=== PATIENT | female | born 1965 | race Caucasian/White ===

== ENCOUNTER 2017-07-15 22:26 | Observation (INO) | payer OTHER ==
[2017-07-15] MEDS ORDERED: ASPIRIN 81 MG CHEWABLE TABLETS PO ONE (23:26)
--- NOTE | 2017-07-15 23:26 | PDOC ---
History of Present Illness - General History Source: Patient Exam Limitations: No Limitations <Kadeem Hall - Last Filed: 07/15/17 23:27> <Delfina Callaway - Last Filed: 07/17/17 01:44> - General Chief Complaint: Chest Pain Stated Complaint: CHEST PAIN Time Seen by Provider: 07/15/17 23:06 - History of Present Illness Initial Comments: 07/15/17 23:27 The patient is a 51 year old female with a significant past medical history of borderline diabetes, HTN, and HLD who presents to the ED with complaints of chest pain since earlier today. The patient reports a sharp onset of mid chest pain radiating to her neck with shortness of breath and palpitations while she was sitting down around 9:45 pm tonight. Patient states the chest pain lasted half an hour before subsiding. Upon arrival to the ED, patient states her chest pain is a 0/10. Patient reports a similar episode last week while she was driving in the car and noted her chest pain lasted 10 minutes before subsiding. Patient states she was recently taken off her hypertension medication by her PCP secondary to it being under control. Denies nausea, vomiting, or diarrhea. Denies arm pain. Denies fevers or chills. Denies dysuria or changes in urinary output. Denies any other symptoms. Surgical hx: Tummy Tuck Social hx: No smoking, ETOH or recreational drug use. (Kadeem Hall) Past History <Kadeem Hall - Last Filed: 07/15/17 23:27> - Past Medical History HTN: Yes Hypercholesterolemia: Yes - Psycho/Social/Smoking Cessation Hx Suicidal Ideation: No Smoking History: Never smoked <Delfina Callaway - Last Filed: 07/17/17 01:44> - Past Medical History Allergies/Adverse Reactions: Allergies Allergy/AdvReac Type Severity Reaction Status Date / Time Penicillins Allergy Verified 07/15/17 22:30 Home Medications: Ambulatory Orders Atorvastatin Ca [Lipitor] 20 mg PO HS 07/15/17 Methylprednisolone [Medrol -] 4 mg PO DAILY 07/15/17 Review of Systems - Review of Systems Able to Perform ROS?: Yes All Other Systems: Reviewed and Negative <Kadeem Hall - Last Filed: 07/15/17 23:27> <Delfina Callaway - Last Filed: 07/17/17 01:44> - Review of Systems Comments:: 07/15/17 23:28 CONSTITUTIONAL: No reported: Fever, Chills, Diaphoresis, Generalized Weakness, Malaise, Loss of Appetite HEENT: No reported: Rhinorrhea, Nasal Congestion, Throat Pain, Throat Swelling, Difficulty Swallowing, Mouth Swelling, Ear Pain, Eye Pain, Visual Changes CARDIOVASCULAR: + chest pain, SOB, palpitations No reported: , Syncope, Irregular Heart Rate, Lightheadedness, Peripheral Edema RESPIRATORY: No reported: Cough, Orthopnea, Wheezing, Stridor, Hemoptysis GASTROINTESTINAL: No reported: Abdominal pain, Abdominal Distension, Nausea, Vomiting, Diarrhea, Constipation, Melena, Hematochezia GENITOURINARY: No reported: Dysuria, Frequency, Urgency, Hesitancy, Flank Pain, Genital Pain MUSCULOSKELETAL: No reported: Myalgia, Arthralgia, Joint Swelling, Back pain, Neck Pain SKIN: No reported: Rash, Itching, Pallor HEMEATOLOGIC/IMMUNOLOGIC: No reported: Easy Bleeding, Easy Bruising, Lymphadenopathy, Frequent infections ENDOCRINE: No reported: Unexplained Weight Gain, Unexplained Weight Loss, Heat Intolerance , Cold Intolerance NEUROLOGIC: No reported: Headache, Focal Weakness, Paresthesias, Vertigo, Lightheadedness, Unsteady Gait, Seizure, Mental Status Changes, Incontinence PSYCHIATRIC: No reported: Anxiety, Depression (Kadeem Hall) *Physical Exam <Kadeem Hall - Last Filed: 07/15/17 23:27> <NiltonThaddeusdavid Garenr - Last Filed: 07/17/17 01:44> - Vital Signs Last Vital Signs Temp Pulse Resp BP Pulse Ox 97.8 F 63 20 134/94 98 07/16/17 17:00 07/16/17 17:00 07/16/17 17:00 07/16/17 17:00 07/16/17 20:03 - Physical Exam Comments: 07/15/17 23:28 GENERAL: Well developed, well nourished. Awake and alert. No acute distress. HEENT: Normocephalic, atraumatic. PERRLA, EOMI. No conjunctival pallor. Sclera are non- icteric. Moist mucous membranes. Oropharynx is clear. NECK: Supple. Full ROM. No JVD. Carotid pulses 2+ and symmetric, without bruits. No thyromegaly. No lymphadenopathy. CARDIOVASCULAR: Regular rate and rhythm. No murmurs, rubs, or gallops. Distal pulses are 2+ and symmetric. PULMONARY: No evidence of respiratory distress. Lungs clear to auscultation bilaterally. No wheezing, rales or rhonchi. ABDOMINAL: Soft. Non-tender. Non-distended. No rebound or guarding. No organomegaly. Normoactive bowel sounds. MUSCULOSKELETAL Normal range of motion at all joints. No bony deformities or tenderness. No CVA tenderness. EXTREMITIES: No cyanosis. No clubbing. No edema. No calf tenderness. SKIN: Warm and dry. Normal capillary refill. No rashes. No jaundice. NEUROLOGICAL: Alert, awake, appropriate. Cranial nerves 2-12 intact. No deficits to light touch and temperature in face, upper extremities and lower extremities. No motor deficits in the in face, upper extremities and lower extremities. Normoreflexic in the upper and lower extremities. Normal speech. Toes are down- going bilaterally. Gait is normal without ataxia. PSYCHIATRIC: Cooperative. Good eye contact. Appropriate mood and affect. (Kadeem Hall) ED Treatment Course - LABORATORY CBC & Chemistry Diagram: 07/15/17 23:35 07/15/17 23:35 <Delfina Callaway - Last Filed: 07/17/17 01:44> - ADDITIONAL ORDERS Additional order review: 07/15/17 23:35 RBC 5.08 MCV 92.4 MCHC 33.1 RDW 14.3 MPV 9.3 Neutrophils % 85.5 H Lymphocytes % 8.8 Monocytes % 5.3 Eosinophils % 0.0 Basophils % 0.4 - RADIOLOGY Radiology Studies Ordered: Category Date Time Status CHEST X-RAY PORTABLE* [RAD] Stat Radiology 07/16/17 00:40 Completed - Medications Given in the ED: ED Medications Discontinued Medications Generic Name Dose Route Start Last Admin Trade Name Freq PRN Reason Stop Dose Admin Acetaminophen 1,000 mg 07/16/17 08:51 07/16/17 09:40 Ofirmev Injection - IVPB 07/16/17 08:52 1,000 mg ONCE ONE Administration Al Hydroxide/Mg Hydroxide 30 ml 07/16/17 09:31 07/16/17 09:40 Mylanta Oral Suspension - PO 07/16/17 09:32 30 ml ONCE ONE Administration Aspirin 162 mg 07/15/17 23:26 07/15/17 23:52 Asa - PO 07/15/17 23:27 162 mg ONCE ONE Administration Sodium Chloride 1,000 mls @ 1,000 mls/hr 07/16/17 07:37 07/16/17 09:05 Normal Saline - IV 07/16/17 08:36 1,000 mls/hr ASDIR STA Administration Famotidine/Sodium Chloride 50 mls @ 100 mls/hr 07/16/17 09:31 07/16/17 09:40 Pepcid 20 Mg Premixed Ivpb - IVPB 07/16/17 10:00 100 mls/hr ONCE ONE Administration Medical Decision Making <Kadeem Hall - Last Filed: 07/15/17 23:27> <Delfina Callaway - Last Filed: 07/17/17 01:44> - Medical Decision Making 07/16/17 01:52 51 yo female presents with family after having a 30 minute episode of palpitations and midsternal chest pain. Upon arrival her chest pain was gone -She has had a previous episode within the past 10 days Past medical history hyperlipidemia, she had been on medications for hypertension, but her primary care physician stopped her hypertension medicine -She states that she has borderline diabetes 07/16/17 02: ekg normal sinus rhythm at 98 bpm Patient's cardiac enzymes are negative, chemistries are unremarkable Chest x-ray slightly rotated , but there is no significant cardiomegaly Plan patient have a repeat cardiac enzyme (Delfina Callaway) *DC/Admit/Observation/Transfer <Kadeem Hall - Last Filed: 07/15/17 23:27> <Delfina Callaway - Last Filed: 07/17/17 01:44> Diagnosis at time of Disposition: Chest pain - Discharge Dispostion Condition at time of disposition: Stable - Attestations Scribe Attestion: 07/15/17 23:28 Documentation prepared by Kadeem Hall, acting as medical staff services coordinator for Delfina Callaway MD (Kadeem Hall)
[2017-07-15] MEDS ORDERED: ASPIRIN 81 MG CHEWABLE TABLETS ONE (23:37)
[2017-07-15 23:49] LABS: BASOPHIL 0.4 % (0-2.0); MCH 30.6 pg (25.7-33.7); MCHC 33.1 g/dl (32.0-36.0); MEAN CELL VOLUME 92.4 fl (80-96); MEAN PLT VOLUME 9.3 fl (7.5-11.1); NEUTROPHILS 85.5 % (42.8-82.8); PLATELET COUNT 227 K/MM3 (134-434); RDW 14.3 % (11.6-15.6); WHITE BLOOD COUNT 12.8 K/mm3 (4.0-10.0)
[2017-07-16 00:11] LABS: INR 1.01 (0.82-1.09); PROTHROMBIN TIME (PATIENT) 11.1 SEC (9.98-11.88)
[2017-07-16 00:27] LABS: ALBUMIN 4.1 g/dl (3.4-5.0); ANION GAP 10 (8-16); CALCIUM 9.1 mg/dL (8.5-10.1); CHOLESTEROL 237 mg/dL (50-200); CO2 25 mmol/L (21-32); GLUCOSE,RANDOM 236 mg/dL (74-106); SGPT/ALT 32 U/L (12-78)
[2017-07-16 00:29] LABS: ALK PHOS 103 U/L (45-117); BILIRUBIN,TOTAL 0.5 mg/dL (0.2-1.0); CPK 90 IU/L (26-192); MAGNESIUM 2.3 mg/dL (1.8-2.4); SGOT/AST 23 U/L (15-37); TOT PROT 7.9 g/dl (6.4-8.2); TROPONIN I < 0.02 ng/ml (0.00-0.05)
[2017-07-16 02:47] LABS: LDL CHOLESTEROL (ONLY SJRH) 138 mg/dL (5-100)
[2017-07-16 03:13] LABS: URINE APPEARANCE CLEAR; URINE BILIRUBIN NEGATIVE (NEGATIVE); URINE BLOOD NEGATIVE (NEGATIVE); URINE COLOR LTYELLOW; URINE GLUCOSE (UA) NEGATIVE (NEGATIVE); URINE KETONE NEGATIVE (NEGATIVE); URINE LEUK ESTERASE NEGATIVE (NEGATIVE); URINE NITRITE NEGATIVE (NEGATIVE); URINE PROTEIN NEGATIVE (NEGATIVE); URINE UROBILINOGEN NEGATIVE mg/dL (0.2-1.0)
[2017-07-16 07:16] LABS: CPK 69 IU/L (26-192); TROPONIN I < 0.02 ng/ml (0.00-0.05)
[2017-07-16] MEDS ORDERED: SODIUM CHLORIDE 1,000 ML IV STA (07:37)
--- NOTE | 2017-07-16 07:39 | PDOC ---
*Physical Exam - Vital Signs Last Vital Signs Temp Pulse Resp BP Pulse Ox 97.7 F 91 H 20 135/79 98 07/16/17 06:46 07/16/17 06:46 07/16/17 06:46 07/16/17 06:46 07/16/17 06:46 Heart Score/ECG Review - History History: Slightly suspicious - Electrocardiogram EKG: Non specific repolarization disturbance - Age Age: 45-65 - Risk Factors Risk Factors Heart Score: Yes Hx Hypercholesterolemia, Yes Hx Hypertension, Yes Hx Diabetes, Yes Hx Obesity Based on the list above the patient has:: >/=3 risk factors or Hx atherosclerotic disease - Troponin Troponin: </= normal limit - Score Heart Score - Total: 4 ED Treatment Course - LABORATORY CBC & Chemistry Diagram: 07/15/17 23:35 07/15/17 23:35 - ADDITIONAL ORDERS Additional order review: Laboratory Results 07/16/17 07/16/17 07/15/17 06:34 03:00 23:35 INR Sodium Potassium Chloride Carbon Dioxide Anion Gap BUN Creatinine Creat Clearance w eGFR Random Glucose Calcium Magnesium Total Bilirubin AST ALT Alkaline Phosphatase Creatine Kinase 69 Troponin I < 0.02 B-Natriuretic Peptide Total Protein Albumin Triglycerides Cholesterol Total LDL Cholesterol HDL Cholesterol Serum , Qual Negative Urine Color Ltyellow Urine Appearance Clear Urine pH 5.0 Urine Protein Negative Urine Glucose (UA) Negative Urine Ketones Negative Urine Blood Negative Urine Nitrite Negative Urine Bilirubin Negative Urine Urobilinogen Negative Ur Leukocyte Esterase Negative 07/15/17 07/15/17 23:35 23:35 INR 1.01 Sodium 137 Potassium 4.7 Chloride 102 Carbon Dioxide 25 Anion Gap 10 BUN 24 H Creatinine 1.0 Creat Clearance w eGFR 58.00 Random Glucose 236 H Calcium 9.1 Magnesium 2.3 Total Bilirubin 0.5 AST 23 ALT 32 Alkaline Phosphatase 103 Creatine Kinase 90 Troponin I < 0.02 B-Natriuretic Peptide 51.97 Total Protein 7.9 Albumin 4.1 Triglycerides 202 H Cholesterol 237 H Total LDL Cholesterol 138 H HDL Cholesterol 63 H Serum , Qual Urine Color Urine Appearance Urine pH Urine Protein Urine Glucose (UA) Urine Ketones Urine Blood Urine Nitrite Urine Bilirubin Urine Urobilinogen Ur Leukocyte Esterase 07/15/17 23:35 RBC 5.08 MCV 92.4 MCHC 33.1 RDW 14.3 MPV 9.3 Neutrophils % 85.5 H Lymphocytes % 8.8 Monocytes % 5.3 Eosinophils % 0.0 Basophils % 0.4 - Medications Given in the ED: ED Medications Discontinued Medications Generic Name Dose Route Start Last Admin Trade Name Freq PRN Reason Stop Dose Admin Aspirin 162 mg 07/15/17 23:26 07/15/17 23:52 Asa - PO 07/15/17 23:27 162 mg ONCE ONE Administration Medical Decision Making - Medical Decision Making 07/16/17 10:24 51 F with HTN, HLD presenting with chest pain. EKG nonischemic, Trops negative x2. However, pt reassessed in AM and is still having active chest pain. - Ddimer ordered - Pt to be admitted for obs - Dr. Jung has accepted pt. - Cards consult pending. *DC/Admit/Observation/Transfer Diagnosis at time of Disposition: Chest pain - Discharge Dispostion Condition at time of disposition: Stable
[2017-07-16] MEDS ORDERED: ACETAMINOPHEN 1000 MG/100 ML VIAL (NON FORMULARY) IVPB ONE (08:51)
[2017-07-16] MEDS ORDERED: FAMOTIDINE 20 MG/50 ML IVPB 50 ML IVPB ONE ×2 (09:31→09:34)
[2017-07-16] MEDS ORDERED: MAG HYDROX/AL HYDROX/SIMETH 30 ML UNIT-DOSE CUP PO ONE (09:31)
[2017-07-16] MEDS ORDERED: MAG HYDROX/AL HYDROX/SIMETH 30 ML UNIT-DOSE CUP ONE (09:34)
[2017-07-16] MEDS ORDERED: ACETAMINOPHEN INJECTION 100 ML IVPB ONE (09:34)
[2017-07-16 14:02] VITALS: BMI 34.7
--- NOTE | 2017-07-16 15:52 | PDOC ---
*Physical Exam - Vital Signs Last Vital Signs Temp Pulse Resp BP Pulse Ox 97.9 F 67 18 118/52 98 07/16/17 15:40 07/16/17 15:40 07/16/17 15:40 07/16/17 15:40 07/16/17 15:40 <Ben Diaz - Last Filed: 07/16/17 15:52> - Vital Signs Last Vital Signs Temp Pulse Resp BP Pulse Ox 97.9 F 67 18 118/52 98 07/16/17 15:40 07/16/17 15:40 07/16/17 15:40 07/16/17 15:40 07/16/17 15:40 <Chloe Saleh - Last Filed: 07/16/17 16:27> ED Treatment Course - LABORATORY CBC & Chemistry Diagram: 07/15/17 23:35 07/15/17 23:35 - ADDITIONAL ORDERS Additional order review: Laboratory Results 07/16/17 07/16/17 07/16/17 09:40 06:34 03:00 D-Dimer < 200 Creatine Kinase 69 Troponin I < 0.02 Urine Color Ltyellow Urine Appearance Clear Urine pH 5.0 Ur Specific [place] 1.020 Urine Protein Negative Urine Glucose (UA) Negative Urine Ketones Negative Urine Blood Negative Urine Nitrite Negative Urine Bilirubin Negative Urine Urobilinogen Negative Ur Leukocyte Esterase Negative 07/15/17 23:35 RBC 5.08 MCV 92.4 MCHC 33.1 RDW 14.3 MPV 9.3 Neutrophils % 85.5 H Lymphocytes % 8.8 Monocytes % 5.3 Eosinophils % 0.0 Basophils % 0.4 - Medications Given in the ED: ED Medications Discontinued Medications Generic Name Dose Route Start Last Admin Trade Name Donna PRN Reason Stop Dose Admin Acetaminophen 1,000 mg 07/16/17 08:51 07/16/17 09:40 Ofirmev Injection - IVPB 07/16/17 08:52 1,000 mg ONCE ONE Administration Al Hydroxide/Mg Hydroxide 30 ml 07/16/17 09:31 07/16/17 09:40 Mylanta Oral Suspension - PO 07/16/17 09:32 30 ml ONCE ONE Administration Aspirin 162 mg 07/15/17 23:26 07/15/17 23:52 Asa - PO 07/15/17 23:27 162 mg ONCE ONE Administration Sodium Chloride 1,000 mls @ 1,000 mls/hr 07/16/17 07:37 07/16/17 09:05 Normal Saline - IV 07/16/17 08:36 1,000 mls/hr ASDIR STA Administration Famotidine/Sodium Chloride 50 mls @ 100 mls/hr 07/16/17 09:31 07/16/17 09:40 Pepcid 20 Mg Premixed Ivpb - IVPB 07/16/17 10:00 100 mls/hr ONCE ONE Administration <Ou,Ben - Last Filed: 07/16/17 15:52> - LABORATORY CBC & Chemistry Diagram: 07/15/17 23:35 07/15/17 23:35 - ADDITIONAL ORDERS Additional order review: Laboratory Results 07/16/17 07/16/17 07/16/17 09:40 06:34 03:00 D-Dimer < 200 Creatine Kinase 69 Troponin I < 0.02 Urine Color Ltyellow Urine Appearance Clear Urine pH 5.0 Ur Specific [place] 1.020 Urine Protein Negative Urine Glucose (UA) Negative Urine Ketones Negative Urine Blood Negative Urine Nitrite Negative Urine Bilirubin Negative Urine Urobilinogen Negative Ur Leukocyte Esterase Negative 07/15/17 23:35 RBC 5.08 MCV 92.4 MCHC 33.1 RDW 14.3 MPV 9.3 Neutrophils % 85.5 H Lymphocytes % 8.8 Monocytes % 5.3 Eosinophils % 0.0 Basophils % 0.4 - Medications Given in the ED: ED Medications Discontinued Medications Generic Name Dose Route Start Last Admin Trade Name Donna PRN Reason Stop Dose Admin Acetaminophen 1,000 mg 07/16/17 08:51 07/16/17 09:40 Ofirmev Injection - IVPB 07/16/17 08:52 1,000 mg ONCE ONE Administration Al Hydroxide/Mg Hydroxide 30 ml 07/16/17 09:31 07/16/17 09:40 Mylanta Oral Suspension - PO 07/16/17 09:32 30 ml ONCE ONE Administration Aspirin 162 mg 07/15/17 23:26 07/15/17 23:52 Asa - PO 07/15/17 23:27 162 mg ONCE ONE Administration Sodium Chloride 1,000 mls @ 1,000 mls/hr 07/16/17 07:37 07/16/17 09:05 Normal Saline - IV 07/16/17 08:36 1,000 mls/hr ASDIR STA Administration Famotidine/Sodium Chloride 50 mls @ 100 mls/hr 07/16/17 09:31 07/16/17 09:40 Pepcid 20 Mg Premixed Ivpb - IVPB 07/16/17 10:00 100 mls/hr ONCE ONE Administration <Chloe Saleh - Last Filed: 07/16/17 16:27> Medical Decision Making - Medical Decision Making 07/16/17 15:53 Continuing note from 07/16/2017. Paged Dr. Louise via phone answering service at 9:51 AM. Awaiting call back. Paged Dr. Louise via phone answering service at 2:00 PM Awaiting call back. Called Dr. Louise via phone answering service at 3:51 PM Phone line busy Called Dr. Louise via phone answering service at 3:59 PM Phone line busy. Paged Dr. Louise via phone answering service at 4:00 PM Awaiting call back. Paged Dr. Louise via phone answering service at 4:26 PM Awaiting call back. Yenny-[employer]te[employer] operator states Dr. Louise will come in to see the patient. Waiting for Dr. Louise <Chloe Saleh - Last Filed: 07/16/17 16:27> *DC/Admit/Observation/Transfer <Ben Diaz - Last Filed: 07/16/17 15:52> - Attestations Scribe Attestion: 07/16/17 16:27 Documentation prepared by Chloe Saleh, acting as biomedical engineering director for Ben Diaz MD <Chloe Saleh - Last Filed: 07/16/17 16:27> Diagnosis at time of Disposition: Chest pain - Discharge Dispostion Condition at time of disposition: Stable
--- NOTE | 2017-07-16 16:28 | HP ---
Admitting History and Physical - Primary Care Physician PCP: Nadia Jung - Admission Chief Complaint: chest pain History of Present Illness: 51 year old female with a significant past medical history of borderline diabetes, HTN, and HLD who presents to the ED with complaints of chest pain since earlier yesterday. The patient reports a sharp onset of mid chest pain radiating to her neck with shortness of breath and palpitations while she was sitting down around 9:45 pm last night. Patient states the chest pain lasted half an hour before subsiding. Upon arrival to the ED, patient states her chest pain is a 0/10. Patient reports a similar episode last week while she was driving in the car and noted her chest pain lasted 10 minutes before subsiding. Patient states she was recently taken off her hypertension medication by her PCP . - Past Medical History Cardiovascular: Yes: HTN, Hyperlipdemia - Smoking History Smoking history: Never smoked Home Medications - Allergies Allergies/Adverse Reactions: Allergies Allergy/AdvReac Type Severity Reaction Status Date / Time Penicillins Allergy Verified 07/15/17 22:30 - Home Medications Home Medications: Ambulatory Orders Atorvastatin Ca [Lipitor] 20 mg PO HS 07/15/17 Methylprednisolone [Medrol -] 4 mg PO DAILY 07/15/17 Physical Examination Vital Signs: Vital Signs Temperature 97.9 F 07/16/17 15:40 Pulse Rate 67 07/16/17 15:40 Respiratory Rate 18 07/16/17 15:40 Blood Pressure 154/87 07/16/17 15:40 O2 Sat by Pulse Oximetry (%) 98 07/16/17 15:40 Constitutional: Yes: No Distress HENT: Yes: Atraumatic Neck: Yes: Supple Cardiovascular: Yes: Regular Rate and Rhythm Respiratory: Yes: CTA Bilaterally Gastrointestinal: Yes: Normal Bowel Sounds Extremities: Yes: WNL Neurological: Yes: Alert, Oriented Imaging - Results X-ray: Report Reviewed Problem List - Problems (1) Chest pain Assessment/Plan: tele monitoring serial cardiac enzymes echo/stress test per cardiology Code(s): R07.9 - CHEST PAIN, UNSPECIFIED Qualifiers: Chest pain type: unspecified Qualified Code(s): R07.9 - Chest pain, unspecified (2) HTN (hypertension) Assessment/Plan: on meds stable Code(s): I10 - ESSENTIAL (PRIMARY) HYPERTENSION Qualifiers: Hypertension type: essential hypertension Qualified Code(s): I10 - Essential (primary) hypertension (3) HLD (hyperlipidemia) Assessment/Plan: on meds stable Code(s): E78.5 - HYPERLIPIDEMIA, UNSPECIFIED Qualifiers: Hyperlipidemia type: pure hypercholesterolemia Qualified Code(s): E78.00 - Pure hypercholesterolemia, unspecified; E78.0 - Pure hypercholesterolemia Assessment/Plan Laboratory Tests 07/15/17 07/15/17 07/15/17 23:35 23:35 23:35 WBC 12.8 H RBC 5.08 Hgb 15.5 H Hct 46.9 H MCV 92.4 MCH 30.6 MCHC 33.1 RDW 14.3 Plt Count 227 MPV 9.3 Neutrophils % 85.5 H Lymphocytes % 8.8 Monocytes % 5.3 Eosinophils % 0.0 Basophils % 0.4 INR 1.01 D-Dimer Sodium 137 Potassium 4.7 Chloride 102 Carbon Dioxide 25 Anion Gap 10 BUN 24 H Creatinine 1.0 Creat Clearance w eGFR 58.00 Random Glucose 236 H Calcium 9.1 Magnesium 2.3 Total Bilirubin 0.5 AST 23 ALT 32 Alkaline Phosphatase 103 Creatine Kinase 90 Troponin I < 0.02 B-Natriuretic Peptide 51.97 Total Protein 7.9 Albumin 4.1 Triglycerides 202 H Cholesterol 237 H Total LDL Cholesterol 138 H HDL Cholesterol 63 H Serum , Qual Urine Color Urine Appearance Urine pH Ur Specific [place] Urine Protein Urine Glucose (UA) Urine Ketones Urine Blood Urine Nitrite Urine Bilirubin Urine Urobilinogen Ur Leukocyte Esterase 07/15/17 07/16/17 07/16/17 23:35 03:00 06:34 WBC RBC Hgb Hct MCV MCH MCHC RDW Plt Count MPV Neutrophils % Lymphocytes % Monocytes % Eosinophils % Basophils % INR D-Dimer Sodium Potassium Chloride Carbon Dioxide Anion Gap BUN Creatinine Creat Clearance w eGFR Random Glucose Calcium Magnesium Total Bilirubin AST ALT Alkaline Phosphatase Creatine Kinase 69 Troponin I < 0.02 B-Natriuretic Peptide Total Protein Albumin Triglycerides Cholesterol Total LDL Cholesterol HDL Cholesterol Serum , Qual Negative Urine Color Ltyellow Urine Appearance Clear Urine pH 5.0 Ur Specific [place] 1.020 Urine Protein Negative Urine Glucose (UA) Negative Urine Ketones Negative Urine Blood Negative Urine Nitrite Negative Urine Bilirubin Negative Urine Urobilinogen Negative Ur Leukocyte Esterase Negative 07/16/17 09:40 WBC RBC Hgb Hct MCV MCH MCHC RDW Plt Count MPV Neutrophils % Lymphocytes % Monocytes % Eosinophils % Basophils % INR D-Dimer < 200 Sodium Potassium Chloride Carbon Dioxide Anion Gap BUN Creatinine Creat Clearance w eGFR Random Glucose Calcium Magnesium Total Bilirubin AST ALT Alkaline Phosphatase Creatine Kinase Troponin I B-Natriuretic Peptide Total Protein Albumin Triglycerides Cholesterol Total LDL Cholesterol HDL Cholesterol Serum , Qual Urine Color Urine Appearance Urine pH Ur Specific [place] Urine Protein Urine Glucose (UA) Urine Ketones Urine Blood Urine Nitrite Urine Bilirubin Urine Urobilinogen Ur Leukocyte Esterase Active Medications Generic Name Dose Route Start Last Admin Trade Name Freq PRN Reason Stop Dose Admin Acetaminophen 650 mg 07/16/17 16:42 Tylenol - PO Q6H PRN FEVER OR PAIN Amlodipine Besylate 5 mg 07/16/17 16:45 07/17/17 11:16 Norvasc - PO 5 mg DAILY RYAN Administration Aspirin 81 mg 07/17/17 10:00 07/17/17 11:16 Ecotrin - PO 81 mg DAILY RYAN Administration Atorvastatin Calcium 40 mg 07/16/17 22:00 07/16/17 22:15 Lipitor - PO 40 mg HS RYAN Administration
[2017-07-16] MEDS ORDERED: ACETAMINOPHEN 325 MG TABLET (FP) PO PRN (16:42)
[2017-07-16] MEDS: amLODIPine BESYLATE 5 MG TABLET (FP) PO SCH (17:16)
--- NOTE | 2017-07-16 17:22 | CON.CARD ---
Consult Consult Specialty:: Cardiology Referred by:: Dr. Jung Reason for Consultation:: Cardiac evaluation - History of Present Illness Chief Complaint: Chest pain History of Present Illness: Patient is a 51 year old female of descent with underlying history of hypercholesterolemia on medication and hypertension (not on medication) who presents to ED with episode of mid sternal chest discomfort initially "sharp" then pressure like early this morning. She denies any radiation of pain, but complained of sweating. She also complained of shortness of breath and occasional palpitations. She denies paroxysmal nocturnal dyspnea or orthopnea. She denies fever or chills. She denies headache or lightheadedness. She has not had any cardiac testings in the past. Cardiology consultation was called for further evaluation. - History Source History Provided By: Patient, Medical Record Limitations to Obtaining History: No Limitations - Past Medical History Cardio/Vascular: Yes: HTN, Hyperlipdemia - Past Surgical History Additional Surgical History: Tummy tuck - Smoking History Smoking history: Never smoked Home Medications - Allergies Allergies/Adverse Reactions: Allergies Allergy/AdvReac Type Severity Reaction Status Date / Time Penicillins Allergy Verified 07/15/17 22:30 - Home Medications Home Medications: Ambulatory Orders Atorvastatin Ca [Lipitor] 20 mg PO HS 07/15/17 Methylprednisolone [Medrol -] 4 mg PO DAILY 07/15/17 Family Disease History - Family Disease History Family Disease History: Other: Father (Stroke) Review of Systems - Review of Systems Constitutional: denies: Chills, Fever Cardiovascular: reports: Chest Pain, Shortness of Breath. denies: Palpitations Respiratory: reports: SOB. denies: Cough, Hemoptysis, Orthopnea, PND Gastrointestinal: denies: Abdominal Pain, Constipation, Diarrhea, Melena, Nausea , Rectal Bleeding, Vomiting Musculoskeletal: denies: Joint Pain Neurological: denies: Dizziness, Headache, Seizure, Syncope Vital Signs: Vital Signs Temperature 98.2 F 07/16/17 16:49 Pulse Rate 62 07/16/17 16:49 Respiratory Rate 14 07/16/17 16:49 Blood Pressure 136/94 07/16/17 16:49 O2 Sat by Pulse Oximetry (%) 98 07/16/17 16:30 Neck: Yes: Supple Respiratory: Yes: Regular, CTA Bilaterally Gastrointestinal: Yes: Normal Bowel Sounds, Soft. No: Tenderness Cardiovascular: Yes: Regular Rate and Rhythm JVD: No Carotid Bruit: No PMI: Non-Displaced Heart Sounds: Yes: S1, S2. No: Gallop Murmur: No: Systolic Murmur Edema: No - Other Data Labs, Other Data: INR, PTT INR 1.01 (0.82-1.09) 07/15/17 23:35 Laboratory Results - last 24 hr 07/15/17 07/15/17 07/15/17 23:35 23:35 23:35 WBC 12.8 H RBC 5.08 Hgb 15.5 H Hct 46.9 H MCV 92.4 MCH 30.6 MCHC 33.1 RDW 14.3 Plt Count 227 MPV 9.3 Neutrophils % 85.5 H Lymphocytes % 8.8 Monocytes % 5.3 Eosinophils % 0.0 Basophils % 0.4 INR 1.01 D-Dimer Sodium 137 Potassium 4.7 Chloride 102 Carbon Dioxide 25 Anion Gap 10 BUN 24 H Creatinine 1.0 Creat Clearance w eGFR 58.00 Random Glucose 236 H Calcium 9.1 Magnesium 2.3 Total Bilirubin 0.5 AST 23 ALT 32 Alkaline Phosphatase 103 Creatine Kinase 90 Troponin I < 0.02 B-Natriuretic Peptide 51.97 Total Protein 7.9 Albumin 4.1 Triglycerides 202 H Cholesterol 237 H Total LDL Cholesterol 138 H HDL Cholesterol 63 H Serum , Qual Urine Color Urine Appearance Urine pH Ur Specific [place] Urine Protein Urine Glucose (UA) Urine Ketones Urine Blood Urine Nitrite Urine Bilirubin Urine Urobilinogen Ur Leukocyte Esterase 07/15/17 07/16/17 07/16/17 23:35 03:00 06:34 WBC RBC Hgb Hct MCV MCH MCHC RDW Plt Count MPV Neutrophils % Lymphocytes % Monocytes % Eosinophils % Basophils % INR D-Dimer Sodium Potassium Chloride Carbon Dioxide Anion Gap BUN Creatinine Creat Clearance w eGFR Random Glucose Calcium Magnesium Total Bilirubin AST ALT Alkaline Phosphatase Creatine Kinase 69 Troponin I < 0.02 B-Natriuretic Peptide Total Protein Albumin Triglycerides Cholesterol Total LDL Cholesterol HDL Cholesterol Serum , Qual Negative Urine Color Ltyellow Urine Appearance Clear Urine pH 5.0 Ur Specific [place] 1.020 Urine Protein Negative Urine Glucose (UA) Negative Urine Ketones Negative Urine Blood Negative Urine Nitrite Negative Urine Bilirubin Negative Urine Urobilinogen Negative Ur Leukocyte Esterase Negative 07/16/17 09:40 WBC RBC Hgb Hct MCV MCH MCHC RDW Plt Count MPV Neutrophils % Lymphocytes % Monocytes % Eosinophils % Basophils % INR D-Dimer < 200 Sodium Potassium Chloride Carbon Dioxide Anion Gap BUN Creatinine Creat Clearance w eGFR Random Glucose Calcium Magnesium Total Bilirubin AST ALT Alkaline Phosphatase Creatine Kinase Troponin I B-Natriuretic Peptide Total Protein Albumin Triglycerides Cholesterol Total LDL Cholesterol HDL Cholesterol Serum , Qual Urine Color Urine Appearance Urine pH Ur Specific [place] Urine Protein Urine Glucose (UA) Urine Ketones Urine Blood Urine Nitrite Urine Bilirubin Urine Urobilinogen Ur Leukocyte Esterase Sinus rhythm no ST-T abnormality Echo: Pending Imaging - Results Chest X-ray: Report Reviewed (Unremarkable) EKG: Report Reviewed Problem List - Problems (1) Chest pain Code(s): R07.9 - CHEST PAIN, UNSPECIFIED Qualifiers: Chest pain type: unspecified Qualified Code(s): R07.9 - Chest pain, unspecified (2) HLD (hyperlipidemia) Code(s): E78.5 - HYPERLIPIDEMIA, UNSPECIFIED Qualifiers: Hyperlipidemia type: pure hypercholesterolemia Qualified Code(s): E78.00 - Pure hypercholesterolemia, unspecified; E78.0 - Pure hypercholesterolemia (3) HTN (hypertension) Code(s): I10 - ESSENTIAL (PRIMARY) HYPERTENSION Qualifiers: Hypertension type: essential hypertension Qualified Code(s): I10 - Essential (primary) hypertension Assessment/Plan 1. Chest pain syndrome possibly due to uncontrolled HTN, rule out CAD 2. Hypertension 3. Hypercholesterolemia 4. Elevated glucose, rule out diabetes mellitus PLAN: 1. Serial cardiac enzymes 2. Add ASA 81 mg once a day 3. Continue Amlodipine and tolerate 4. Continue Atorvastatin and titrate up to 40 mg once a day to achieve LDL target below 100 5. Transthoracic echocardiography to assess LV/RV and valvular function 6. Nuclear myocardial perfusion imaging study at some point, but will decide whether to do it as inpatient vs. outpatient 7. Check hemoglobin A1C Further plans are to follow Boni Louise MD
[2017-07-16 18:30] LABS: CPK 45 IU/L (26-192); TROPONIN I < 0.02 ng/ml (0.00-0.05)
--- NOTE | 2017-07-16 18:58 | EKG ---
Test Reason : Blood Pressure : / mmHG Vent. Rate : 067 BPM Atrial Rate : 067 BPM P-R Int : 128 ms QRS Dur : 080 ms QT Int : 378 ms P-R-T Axes : 039 -05 008 degrees QTc Int : 399 ms NORMAL SINUS RHYTHM WITH SINUS ARRHYTHMIA NORMAL ECG NO PREVIOUS ECGS AVAILABLE Confirmed by GOMEZ CONNELLY MD ([id number]) on 07/16/2017 6:57:37 PM Referred By: Confirmed By:GOMEZ CONNELLY MD
--- NOTE | 2017-07-16 19:01 | EKG ---
Test Reason : Blood Pressure : / mmHG Vent. Rate : 098 BPM Atrial Rate : 098 BPM P-R Int : 130 ms QRS Dur : 082 ms QT Int : 346 ms P-R-T Axes : 050 000 007 degrees QTc Int : 441 ms NORMAL SINUS RHYTHM POSSIBLE LEFT ATRIAL ENLARGEMENT BORDERLINE ECG NO PREVIOUS ECGS AVAILABLE Confirmed by GOMEZ CONNELLY MD ([id number]) on 07/16/2017 7:01:03 PM Referred By: Confirmed By:GOMEZ CONNELLY MD
[2017-07-16] MEDS ORDERED: ATORVASTATIN CA 20 MG TABLET (FP) PO SCH ×2 (22:00)
[2017-07-17] MEDS ORDERED: ASPIRIN COATED 81 MG TABLET.EC PO SCH (10:00)
[2017-07-17] MEDS: amLODIPine BESYLATE 5 MG TABLET (FP) PO SCH (11:16)
--- NOTE | 2017-07-17 11:31 | PN ---
Progress Note, Physician Chief Complaint: Not in distress History of Present Illness: Patient was seen and examined. Awake and alert. Chart was reviewed Denies SOB or palpitation, but complains of intermittent sharp epigastric pain - Current Medication List Current Medications: Active Medications Acetaminophen (Tylenol -) 650 mg PO Q6H PRN PRN Reason: FEVER OR PAIN Amlodipine Besylate (Norvasc -) 5 mg PO DAILY [facility] Last Admin: 07/17/17 11:16 Dose: 5 mg Aspirin (Ecotrin -) 81 mg PO DAILY [facility] Last Admin: 07/17/17 11:16 Dose: 81 mg Atorvastatin Calcium (Lipitor -) 40 mg PO HS [facility] Last Admin: 07/16/17 22:15 Dose: 40 mg - Objective Vital Signs: Vital Signs Temperature 97.8 F 07/17/17 01:00 Pulse Rate 82 07/17/17 01:00 Respiratory Rate 20 07/17/17 01:00 Blood Pressure 136/91 07/17/17 01:00 O2 Sat by Pulse Oximetry (%) 98 07/16/17 20:03 HENT: Yes: Atraumatic Neck: Yes: Supple Cardiovascular: Yes: Regular Rate and Rhythm, S1, S2. No: Gallop, Murmur Respiratory: Yes: CTA Bilaterally Gastrointestinal: Yes: Normal Bowel Sounds, Soft. No: Tenderness Edema: No Additional Findings/Remarks: - Review of Systems Constitutional: denies: Chills, Fever Cardiovascular: reports: Chest Pain, Shortness of Breath. denies: Palpitations Respiratory: reports: SOB. denies: Cough, Hemoptysis, Orthopnea, PND Gastrointestinal: denies: Abdominal Pain, Constipation, Diarrhea, Melena, Nausea , Rectal Bleeding, Vomiting Musculoskeletal: denies: Joint Pain Neurological: denies: Dizziness, Headache, Seizure, Syncope Labs: INR, PTT INR 1.01 (0.82-1.09) 07/15/17 23:35 Laboratory Results - last 24 hr 07/17/17 06:05 Hemoglobin A1c % 6.5 H CBCD WBC 12.8 K/mm3 (4.0-10.0) H 07/15/17 23:35 RBC 5.08 M/mm3 (3.60-5.2) 07/15/17 23:35 Hgb 15.5 GM/dL (10.7-15.3) H 07/15/17 23:35 Hct 46.9 % (32.4-45.2) H 07/15/17 23:35 MCV 92.4 fl (80-96) 07/15/17 23:35 MCHC 33.1 g/dl (32.0-36.0) 07/15/17 23:35 RDW 14.3 % (11.6-15.6) 07/15/17 23:35 Plt Count 227 K/MM3 (134-434) 07/15/17 23:35 MPV 9.3 fl (7.5-11.1) 07/15/17 23:35 CMP Sodium 137 mmol/L (136-145) 07/15/17 23:35 Potassium 4.7 mmol/L (3.5-5.1) 07/15/17 23:35 Chloride 102 mmol/L (98-107) 07/15/17 23:35 Carbon Dioxide 25 mmol/L (21-32) 07/15/17 23:35 Anion Gap 10 (8-16) 07/15/17 23:35 BUN 24 mg/dL (7-18) H 07/15/17 23:35 Creatinine 1.0 mg/dL (0.55-1.02) 07/15/17 23:35 Creat Clearance w eGFR 58.00 (>60) 07/15/17 23:35 Random Glucose 236 mg/dL (74-106) H 07/15/17 23:35 Calcium 9.1 mg/dL (8.5-10.1) 07/15/17 23:35 Total Bilirubin 0.5 mg/dL (0.2-1.0) 07/15/17 23:35 AST 23 U/L (15-37) 07/15/17 23:35 ALT 32 U/L (12-78) 07/15/17 23:35 Alkaline Phosphatase 103 U/L (45-117) 07/15/17 23:35 Total Protein 7.9 g/dl (6.4-8.2) 07/15/17 23:35 Albumin 4.1 g/dl (3.4-5.0) 07/15/17 23:35 CARDIAC ENZYMES Creatine Kinase 45 IU/L (26-192) 07/16/17 17:30 Troponin I < 0.02 ng/ml (0.00-0.05) 07/16/17 17:30 Problem List - Problems (1) Chest pain Code(s): R07.9 - CHEST PAIN, UNSPECIFIED Qualifiers: Chest pain type: unspecified Qualified Code(s): R07.9 - Chest pain, unspecified (2) HLD (hyperlipidemia) Code(s): E78.5 - HYPERLIPIDEMIA, UNSPECIFIED Qualifiers: Hyperlipidemia type: pure hypercholesterolemia Qualified Code(s): E78.00 - Pure hypercholesterolemia, unspecified; E78.0 - Pure hypercholesterolemia (3) HTN (hypertension) Code(s): I10 - ESSENTIAL (PRIMARY) HYPERTENSION Qualifiers: Hypertension type: essential hypertension Qualified Code(s): I10 - Essential (primary) hypertension Assessment/Plan 1. Chest pain syndrome possibly due to uncontrolled HTN, rule out CAD 2. Hypertension 3. Hypercholesterolemia 4. Elevated glucose, rule out diabetes mellitus PLAN: 1. Serial cardiac enzymes negative 2. Add ASA 81 mg once a day 3. Continue Amlodipine and tolerate 4. Continue Atorvastatin and titrate up to 40 mg once a day to achieve LDL target below 100 5. Transthoracic echocardiography to assess LV/RV and valvular function 6. Exercise treadmill stress testing 7. Check hemoglobin A1C Further plans are to follow and further work up can be done as outpatient if patient were to be discharged after above cardiac testings Boni Louise MD
--- NOTE | 2017-07-17 15:22 | PN ---
Progress Note, Physician - Current Medication List Current Medications: Active Medications Acetaminophen (Tylenol -) 650 mg PO Q6H PRN PRN Reason: FEVER OR PAIN Amlodipine Besylate (Norvasc -) 5 mg PO DAILY [facility] Last Admin: 07/17/17 11:16 Dose: 5 mg Aspirin (Ecotrin -) 81 mg PO DAILY [facility] Last Admin: 07/17/17 11:16 Dose: 81 mg Atorvastatin Calcium (Lipitor -) 40 mg PO HS [facility] Last Admin: 07/16/17 22:15 Dose: 40 mg - Objective Vital Signs: Vital Signs Temperature 98.5 F 07/17/17 15:00 Pulse Rate 118 H 07/17/17 15:00 Respiratory Rate 18 07/17/17 15:00 Blood Pressure 139/92 07/17/17 15:00 O2 Sat by Pulse Oximetry (%) 98 07/17/17 12:00 Constitutional: Yes: No Distress HENT: Yes: Atraumatic Neck: Yes: Supple Cardiovascular: Yes: Regular Rate and Rhythm Respiratory: Yes: CTA Bilaterally Gastrointestinal: Yes: Normal Bowel Sounds Extremities: Yes: WNL Edema: No Neurological: Yes: Alert, Oriented Labs: INR, PTT INR 1.01 (0.82-1.09) 07/15/17 23:35 Problem List - Problems (1) Chest pain Assessment/Plan: tele monitoring serial cardiac enzymes...negativex3 echo/stress test per cardiology Code(s): R07.9 - CHEST PAIN, UNSPECIFIED Qualifiers: Chest pain type: unspecified Qualified Code(s): R07.9 - Chest pain, unspecified (2) HTN (hypertension) Assessment/Plan: on meds stable Code(s): I10 - ESSENTIAL (PRIMARY) HYPERTENSION Qualifiers: Hypertension type: essential hypertension Qualified Code(s): I10 - Essential (primary) hypertension (3) HLD (hyperlipidemia) Assessment/Plan: on meds stable Code(s): E78.5 - HYPERLIPIDEMIA, UNSPECIFIED Qualifiers: Hyperlipidemia type: pure hypercholesterolemia Qualified Code(s): E78.00 - Pure hypercholesterolemia, unspecified; E78.0 - Pure hypercholesterolemia
[2017-07-17 19:50] VITALS: BP 132/78; PULSE 73; TEMP 98.1
--- NOTE | 2017-07-18 19:03 | DS ---
Physical Examination Vital Signs: Vital Signs Temperature 98.1 F 07/17/17 17:00 Pulse Rate 73 07/17/17 17:00 Respiratory Rate 20 07/17/17 17:00 Blood Pressure 132/78 07/17/17 17:00 O2 Sat by Pulse Oximetry (%) 98 07/17/17 12:00 Discharge Summary Reason For Visit: CHEST PAIN Condition: Stable - Instructions Disposition: HOME - Home Medications Comprehensive Discharge Medication List: Ambulatory Orders Atorvastatin Ca [Lipitor] 20 mg PO HS 07/15/17 Methylprednisolone [Medrol -] 4 mg PO DAILY 07/15/17 Amlodipine Besylate [Norvasc -] 5 mg PO DAILY #30 tablet 07/17/17 dc home
--- NOTE | 2017-07-19 13:43 | TRE ---
Protocol Name : GARCIA Max Work Load (METS*10) : 89 Time In Exercise Phase : 00:07:17 Max. Systolic BP : 170 mmHg Max Diastolic BP : 90 mmHg Max Heart Rate : 151 BPM Max Predicted Heart Rate : 167 BPM Reason For Termination : Target Heart Rate Achieved Stress Protocol : GARCIA Rest HR : 75 BPM PeakEx METs : 8.9 METS Recovery ECG Response (OLD) : Diagnosis : Resting EKG: Sinus rhyth. tracing was within normal limits. CONCLUSION: 1. NEGATIVE STRESS TEST 2. PATIENT ACHIEVED 90% OF MAXIMUM PREDICTED HEART RATE. 3. HYPERTENSION AND HYPERTENSIVE BLOOD PRESSURE RESPONSE. 4. TEST TERMINATED BECAUSE OF FATIGUE AND ACHIEVEMENT OF 90% OF MAXIMUM PREDICTED HEART RATE 5. NO ARRHYTHMIAS. 6. FAIR EXERCISE TOLERANCE AND CAPACITY. Confirmed by SHEIKH INGRID, ROSHAN ([id number]), department editor HELIO RUSSELL ([id number]) on 07/19/2017 1:42:43 PM
== END 2017-07-17 20:30 | disposition home or self-care (01) ==
LOC: JER 22:26 → JERBED 07-16 10:26 → J4W 07-16 16:35
PROVIDERS: ADMIT Internal Medicine; ATTEND Internal Medicine
PROC: 3E033NZ Introduction of Analgesics, Hypnotics, Sedatives into Peripheral Vein, Percutaneous Approach (ICD-10-PCS; principal; 2017-07-16)
PROC: 3E033GC Introduction of Other Therapeutic Substance into Peripheral Vein, Percutaneous Approach (ICD-10-PCS; 2017-07-16)
PROC: 3E0337Z Introduction of Electrolytic and Water Balance Substance into Peripheral Vein, Percutaneous Approach (ICD-10-PCS; 2017-07-16)
DX: R07.9 Chest pain, unspecified (principal); I10 Essential (primary) hypertension; E78.5 Hyperlipidemia, unspecified; R73.03 Prediabetes; Z88.0 Allergy status to penicillin
CPT/HCPCS: 36415; 71010-TC; 80053; 80061; 81003; 83036; 83721; 83735; 83880; 84484; 84703; 85025; 85379; 85610; 93005; 93010; 93017; 93018; 93306-TC; 99285-25; G0378

== ENCOUNTER 2019-04-10 17:12 | Emergency (ER) | payer OTHER ==
[2019-04-10 17:28] VITALS: BMI 36.3
[2019-04-10] MEDS ORDERED: ASPIRIN 81 MG CHEWABLE TABLETS PO ONE (17:28)
--- NOTE | 2019-04-10 17:28 | PDOC ---
Rapid Medical Evaluation Time Seen by Provider: 04/10/19 17:25 Medical Evaluation: Allergies Allergy/AdvReac Type Severity Reaction Status Date / Time Penicillins Allergy Verified 07/15/17 22:30 04/10/19 17:25 I have performed a brief in-person evaluation of this patient. The patient presents with a chief complaint of: chest pain and SOB yesterday. PCP Liss Cyr sent for r/o PE vs ACS, hx of HTN and HLD, denies recent travel, hormonal use, recent surgeries Pertinent physical exam findings: VSS, lungs ctab I have ordered the following: labs, cxr The patient will proceed to the ED for further evaluation.
[2019-04-10] MEDS ORDERED: ASPIRIN 81 MG CHEWABLE TABLETS ONE (17:50)
[2019-04-10 17:55] LABS: BASO % 0.8 % (0-2.0); EOS % 1.3 % (0-4.5); HEMATOCRIT 45.3 % (32.4-45.2); HEMOGLOBIN 14.9 GM/dL (10.7-15.3); LYMPH % 31.7 % (8-40); MCH 30.7 pg (25.7-33.7); MCHC 32.9 g/dl (32.0-36.0); MEAN CELL VOLUME 93.4 fl (80-96); MEAN PLT VOLUME 9.8 fl (7.5-11.1); MONO % 10.7 % (3.8-10.2); NEUT % 55.5 % (42.8-82.8); PLATELET COUNT 224 K/MM3 (134-434); RBC 4.86 M/mm3 (3.60-5.2); RDW 14.1 % (11.6-15.6); WHITE BLOOD COUNT 8.1 K/mm3 (4.0-10.0)
[2019-04-10 18:18] LABS: INR 0.93 (0.83-1.09)
--- NOTE | 2019-04-10 18:34 | PDOC ---
History of Present Illness - General Chief Complaint: Chest Pain Stated Complaint: CHEST PAIN Time Seen by Provider: 04/10/19 17:25 History Source: Patient Exam Limitations: No Limitations - History of Present Illness Initial Comments: 04/10/19 18:57 53 year old female with PMH HTN, HLD presented to ED for chest pain since 1700 yesterday. Pt stated when her symptoms began she was standing talking to her friend. She stated her chest pain is sharp/pressure/burning, radiating from her back to her chest, sometimes radiating up to her neck, alleviated by ASA, no aggravating factors, 05/28, intermittent, currently present. Pt admitted to shortness of breath. Pt denied nausea, vomiting, cough, fever, chills, abdominal pain. Pt stated she took 2 ASA this AM. Allergies: PCN Past History - Past Medical History Allergies/Adverse Reactions: Allergies Allergy/AdvReac Type Severity Reaction Status Date / Time Penicillins Allergy Verified 07/15/17 22:30 Home Medications: Ambulatory Orders Amlodipine Besylate [Norvasc -] 5 mg PO DAILY 04/10/19 Atorvastatin Ca [Lipitor] 20 mg PO HS 04/10/19 COPD: No Diabetes: Yes HTN: Yes Hypercholesterolemia: Yes - Suicide/Smoking/Psychosocial Hx Smoking History: Never smoked Review of Systems - Review of Systems Able to Perform ROS?: Yes Comments:: 04/10/19 19:00 General: denied fever, chills, generalized weakness. HEENT: denied sore throat, rhinorrhea, ear pain. Heart: admitted to chest pain. denied palpitations, syncope, diaphoresis. Respiratory: admitted to shortness of breath. denied cough, sputum production, hemoptysis. Abdomen: denied abdominal pain, nausea, vomiting, diarrhea, constipation, blood in stool. : denied dysuria, increased urinary frequency, hematuria, urinary incontinence , flank pain. Back: admitted to back pain. Musculoskeletal: denied joint pain, muscle pain, joint swelling. Neurological: denied headache, dizziness, numbness, tingling, weakness. Skin: denied rash, laceration, abrasion. *Physical Exam - Vital Signs Last Vital Signs Temp Pulse Resp BP Pulse Ox 98.3 F 84 18 160/86 100 04/10/19 17:26 04/10/19 17:26 04/10/19 17:26 04/10/19 17:26 04/10/19 17:26 - Physical Exam Comments: 04/10/19 19:00 Constitutional: Well-nourished, Well-developed, appearing stated age. HEENT: head is normocephalic, atraumatic. EOMI. PERRLA. Neck: supple. Full ROM. Heart: regular rhythm. no murmurs, rubs or gallops. Lungs: clear to auscultation bilaterally. no crackles, rhonchi or wheezing. no stridor. Abdomen: soft, nontender. normal bowel sounds. no rebound, guarding, masses. Extremities: peripheral pulses intact. no lower extremity edema. Back: no midline T-spine or L-spine tenderness. no paraspinal tenderness to T- spine or L-spine. negative CVA tenderness bilaterally. Neurological: CN 2-12 grossly intact. moves all four extremities. Psych: awake, alert, oriented x3. follows commands. answers questions appropriately. Heart Score/ECG Review - History History: Moderately suspicious - Electrocardiogram EKG: Normal - Age Age: 45-65 - Risk Factors Risk Factors Heart Score: Yes Hx Hypercholesterolemia, Yes Hx Hypertension Based on the list above the patient has:: 1-2 risk factors - Troponin Troponin: </= normal limit - Score Heart Score - Total: 3 ED Treatment Course - LABORATORY CBC & Chemistry Diagram: 04/10/19 17:46 04/10/19 17:46 - ADDITIONAL ORDERS Additional order review: Laboratory Results 04/10/19 17:46 PT with INR 11.00 INR 0.93 04/10/19 17:46 RBC 4.86 MCV 93.4 MCHC 32.9 RDW 14.1 MPV 9.8 Neutrophils % 55.5 D Lymphocytes % 31.7 D Monocytes % 10.7 H D Eosinophils % 1.3 D Basophils % 0.8 - Medications Given in the ED: ED Medications Discontinued Medications Generic Name Dose Route Start Last Admin Trade Name Freq PRN Reason Stop Dose Admin Aspirin 162 mg 04/10/19 17:28 04/10/19 17:51 Asa - PO 04/10/19 17:29 162 mg ONCE ONE Administration Medical Decision Making - Medical Decision Making 04/10/19 19:01 53 year old female with above PMH presented to ED for chest pain associated with back pain and shortness of breath. Initial Vital Signs Temp Pulse Resp BP Pulse Ox 98.3 F 84 18 160/86 100 04/10/19 17:26 04/10/19 17:26 04/10/19 17:26 04/10/19 17:26 04/10/19 17:26 Afebrile. No tachycardia. No tachypnea. Mild hypertension. No hypoxia on room air. EKG performed at 1709: rate 77, regular rhythm, normal axis, normal intervals, flipped T in III, otherwise no EKG changes. Similar to prior EKG performed 07/16/17. Imaging ordered: CXR, CTA Chest/Abdomen/Pelvis Chart review: ECHO 07/18/17: EF 67% Stress test 07/17/17: negative CBC WBC 8.1 K/mm3 (4.0-10.0) 04/10/19 17:46 RBC 4.86 M/mm3 (3.60-5.2) 04/10/19 17:46 Hgb 14.9 GM/dL (10.7-15.3) 04/10/19 17:46 Hct 45.3 % (32.4-45.2) H 04/10/19 17:46 MCV 93.4 fl (80-96) 04/10/19 17:46 MCH 30.7 pg (25.7-33.7) 04/10/19 17:46 MCHC 32.9 g/dl (32.0-36.0) 04/10/19 17:46 RDW 14.1 % (11.6-15.6) 04/10/19 17:46 Plt Count 224 K/MM3 (134-434) 04/10/19 17:46 MPV 9.8 fl (7.5-11.1) 04/10/19 17:46 Absolute Neuts (auto) 4.5 K/mm3 (1.5-8.0) 04/10/19 17:46 Neutrophils % 55.5 % (42.8-82.8) D 04/10/19 17:46 Lymphocytes % 31.7 % (8-40) D 04/10/19 17:46 Monocytes % 10.7 % (3.8-10.2) H D 04/10/19 17:46 Eosinophils % 1.3 % (0-4.5) D 04/10/19 17:46 Basophils % 0.8 % (0-2.0) 04/10/19 17:46 Nucleated RBC % 0 % (0-0) 04/10/19 17:46 No leukocytosis. No anemia. 04/10/19 19:12 CXR report: no acute disease. CMP Sodium 138 mmol/L (136-145) 04/10/19 17:46 Potassium 5.2 mmol/L (3.5-5.1) H 04/10/19 17:46 Chloride 104 mmol/L (98-107) 04/10/19 17:46 Carbon Dioxide 31 mmol/L (21-32) 04/10/19 17:46 Anion Gap 3 MMOL/L (8-16) L 04/10/19 17:46 BUN 15 mg/dL (7-18) 04/10/19 17:46 Creatinine 0.6 mg/dL (0.55-1.3) 04/10/19 17:46 Est GFR (CKD-EPI)AfAm 118.93 04/10/19 17:46 Est GFR (CKD-EPI)NonAf 102.61 04/10/19 17:46 Random Glucose 99 mg/dL (74-106) 04/10/19 17:46 Calcium 9.6 mg/dL (8.5-10.1) 04/10/19 17:46 Magnesium 2.8 mg/dL (1.8-2.4) H 04/10/19 17:46 Total Bilirubin 0.8 mg/dL (0.2-1) 04/10/19 17:46 AST 50 U/L (15-37) H 04/10/19 17:46 ALT 47 U/L (13-61) 04/10/19 17:46 Alkaline Phosphatase 106 U/L (45-117) 04/10/19 17:46 Creatine Kinase 189 U/L (26-192) 04/10/19 17:46 Troponin I < 0.02 ng/ml (0.00-0.05) 04/10/19 17:46 Total Protein 7.9 g/dl (6.4-8.2) 04/10/19 17:46 Albumin 3.9 g/dl (3.4-5.0) 04/10/19 17:46 Mildly elevated potassium. No VINNY. Mildly elevated magnesium. Normal troponin. Mildly elevated AST. 04/10/19 20:25 CTA report: The thoracic aorta is normal in position and caliber with no evidence of aneurysmal dilatation or dissection. The lung valdez are free of pulmonary masses, areas of acute consolidation or pleural effusions. No mediastinal masses, fluid collections or lymphadenopathy are identified. The heart is not enlarged. The abdominal aorta is normal in position and caliber with no evidence of aneurysmal dilatation or dissection. The branches of the abdominal aorta, including the celiac axis, SMA, bilateral renal arteries and ANANYA are widely patent. The liver is markedly enlarged measuring 25.4 cm in craniocaudad dimension. It is hypodense in texture consistent with diffuse fatty infiltration. No intrahepatic masses are identified. The spleen, pancreas , adrenal glands and kidneys demonstrate no significant abnormalities. The gallbladder is clear. There is no evidence of intra-abdominal or retroperitoneal lymphadenopathy or fluid collections. There is no evidence of pneumoperitoneum, bowel obstruction or intra-abdominal abscess. There is no CT evidence of acute appendicitis or diverticulitis. Examination of the pelvis demonstrates no evidence of pelvic masses, fluid collections or lymphadenopathy. The uterus is enlarged most likely related to leiomyomata. Bilateral tubal ligation clips are present. There is no evidence of acute bony abnormalities. IMPRESSION: 1. No evidence of thoracic or abdominal aortic aneurysm or dissection. 2. No acute pathology within the chest. 3. Hepatomegaly with diffuse fatty infiltration of the liver. 4. Fibroid uterus. 5. No acute pathology within the abdomen or pelvis. Please see above discussion. 04/10/19 20:37 Pt reassessed, reported chest pain improving from 7/10 to 5/10. Pending repeat troponin. 04/10/19 21:18 Pt reported headache, located to her forehead, gradual in onset, similar to prior headaches she gets once a month. Medications ordered: normal saline 1000 cc bolus, reglan 10 mg IV, benadryl 25 mg IV 04/10/19 21:21 Repeat troponin negative. CXR report: PA and lateral projections of the chest are submitted. The heart size is within normal limits. The lung valdez are free of pulmonary infiltrates or pleural effusions. There is tortuosity and calcification of the thoracic aorta and degenerative changes of the thoracic spine. IMPRESSION: No acute disease. 04/10/19 23:12 Pt reported improvement of symptoms, she is requesting discharge. Pt discharged. *DC/Admit/Observation/Transfer Diagnosis at time of Disposition: Chest pain - Discharge Dispostion Disposition: HOME Condition at time of disposition: Improved Decision to Admit order: No - Referrals Referrals: Janie Cyr [Primary Care Provider] - - Patient Instructions Printed Discharge Instructions: DI for Chest Pain Additional Instructions: You were seen today for chest pain. Your EKG was normal. Your labs were normal. Your CatScan showed no dissection of your aorta. Follow up with your primary care doctor within 3 days. Bring all paperwork given to you today to your appointment. Your care is not complete until you follow up. Follow up with your viscera washer within 3 days. Bring all paperwork given to you today to your appointment. Your care is not complete until you follow up. Take Tylenol over the counter for your pain, take as advised on label. Get at least 8 hours of sleep a night. Drink lots of water during the day to stay hydrated. Return to the Emergency Department for increasing pain, fever, vomiting, severe back pain, shortness of breath, severe abdominal pain, or any other new, worsening or concerning symptoms. - Post Discharge Activity Forms/Work/School Notes: Back to Work
[2019-04-10 18:58] LABS: ALBUMIN 3.9 g/dl (3.4-5.0); ALK PHOS 106 U/L (45-117); ANION GAP 3 MMOL/L (8-16); BILIRUBIN,TOTAL 0.8 mg/dL (0.2-1); BLOOD UREA NITROGEN 15 mg/dL (7-18); CALCIUM 9.6 mg/dL (8.5-10.1); CHLORIDE 104 mmol/L (98-107); CO2 31 mmol/L (21-32); CREATININE 0.6 mg/dL (0.55-1.3); GLUCOSE,RANDOM 99 mg/dL (74-106); MAGNESIUM 2.8 mg/dL (1.8-2.4); SGOT/AST 50 U/L (15-37); SGPT/ALT 47 U/L (13-61); SODIUM 138 mmol/L (136-145); TOT PROT 7.9 g/dl (6.4-8.2)
[2019-04-10] MEDS ORDERED: ACETAMINOPHEN 325 MG TABLET (FP) PO ONE (19:03)
--- NOTE | 2019-04-10 19:25 | PDOC ---
Documentation entered by Cindy Henderson SCRIBE, acting as scribe for Renzo Cesar MD. Renzo Cesar MD: This documentation has been prepared by the Santiago rankin Lincy, SCRIBE, under my direction and personally reviewed by me in its entirety. I confirm that the documentation accurately reflects all work, treatment, procedures, and medical decision making performed by me. Attending Attestation - Resident Resident Name: JenyChitra - ED Attending Attestation I have performed the following: I have examined & evaluated the patient, The case was reviewed & discussed with the resident, I agree w/resident's findings & plan, Exceptions are as noted - HPI HPI: 04/10/19 19:23 The patient is a 53-year-old female with a past medical history significant for HTN and HLD presents to the emergency department with chest pain. The patient reports yesterday she was talking to her friends, when she had a sudden onset of back pain that radiating through to her chest, with occasional radiation to the neck. The patient reports she took some ASA, with improvement, denies any other alleviation factor. The patient states she was seen at her PCPs office, from where she was referred to the ER. Denies fever, chills, SOB, leg swelling, or pain. Allergies: penicillins PCP: Janie Pierson - Physicial Exam PE: 04/10/19 21:55 Agree with exam as documented by resident - Medical Decision Making 04/10/19 21:55 Per history, concern for possible dissection, acs, lowest risk by well's F/u labs, cta, symptomatic tx c/o headache, typical pattern, non-exertional, gradual progression f/u reglan/benadryl/ivf dispo per clinical course 04/10/19 21:56
[2019-04-10] MEDS ORDERED: ACETAMINOPHEN 325 MG TABLET (FP) ONE (19:39)
[2019-04-10 19:59] LABS: POTASSIUM 5.2 mmol/L (3.5-5.1)
[2019-04-10 21:07] LABS: LIPASE 240 U/L (73-393)
[2019-04-10] MEDS ORDERED: METOCLOPRAMIDE HCL INJECTION 10 MG/2 ML VIAL IVPUSH ONE (21:09)
[2019-04-10] MEDS ORDERED: SODIUM CHLORIDE 1,000 ML IV STA (21:10)
[2019-04-10] MEDS ORDERED: METOCLOPRAMIDE HCL INJECTION 10 MG/2 ML VIAL ONE (22:28)
[2019-04-11 00:13] VITALS: BP 136/84; PULSE 73; TEMP 98.8
--- NOTE | 2019-04-12 15:39 | EKG ---
Test Reason : Blood Pressure : / mmHG Vent. Rate : 077 BPM Atrial Rate : 077 BPM P-R Int : 128 ms QRS Dur : 086 ms QT Int : 382 ms P-R-T Axes : 048 011 025 degrees QTc Int : 432 ms NORMAL SINUS RHYTHM NORMAL ECG WHEN COMPARED WITH ECG OF 16-JUL-2017 09:32, NO SIGNIFICANT CHANGE WAS FOUND Confirmed by MD Adams Daniel ([id number]) on 04/12/2019 3:39:24 PM Referred By: Confirmed By:Delfino Adams MD
== END 2019-04-11 00:05 | disposition home or self-care (01) ==
LOC: JER 17:12
PROC: 3E033GC Introduction of Other Therapeutic Substance into Peripheral Vein, Percutaneous Approach (ICD-10-PCS; principal; 2019-04-10)
PROC: 3E033GC Introduction of Other Therapeutic Substance into Peripheral Vein, Percutaneous Approach (ICD-10-PCS; 2019-04-10)
DX: R07.9 Chest pain, unspecified (principal); R79.89 Other specified abnormal findings of blood chemistry
CPT/HCPCS: 36415; 71046-TC-FY; 71275-TC; 72191-TC; 74175-TC; 80053; 82550; 82553; 83690; 83735; 84484; 85025; 85610; 93005; 93010; 99285-25; J7030

== ENCOUNTER 2024-10-17 22:32 | Emergency (ER) | payer OTHER ==
[2024-10-17 22:45] VITALS: BP 167/96; PULSE 87; RESP 18; TEMP 98.2; BMI 31.1
[2024-10-17] MEDS ORDERED: LIDOCAINE 4% PATCH TP ONE (23:15)
[2024-10-17] MEDS ORDERED: METHOCARBAMOL 500 MG TABLET ONE (23:16)
[2024-10-17] MEDS: LIDOCAINE 4% PATCH TP ONE (23:25)
[2024-10-17] MEDS: METHOCARBAMOL 750 MG TAB PO ONE (23:25)
[2024-10-18] MEDS ORDERED: IBUPROFEN 400 MG TABLET (FP) PO ONE (01:02)
[2024-10-18] MEDS: IBUPROFEN 400 MG TABLET (FP) PO ONE (01:06)
== END 2024-10-18 01:21 | disposition home or self-care (01) ==
LOC: JER 22:32
DX: S09.90XA Unspecified injury of head, initial encounter (principal); M54.2 Cervicalgia; Y04.8XXA Assault by other bodily force, initial encounter
CPT/HCPCS: 70450-TC; 99284-25